=== PATIENT | male | born 1985 | race African-American/Black ===

== ENCOUNTER 2018-01-17 01:19 | Emergency (ER) | payer OTHER ==
[~2018-01-17] VITALS: Ht 175.3 cm; Wt 69.4 kg
--- NOTE | 2018-01-17 04:36 | NUR ---
Patient discharged to home in stable conditon. Written and verbal after care instructions given. Patient verbalizes understanding of instructions. Patient able to ambulate unassisted with steady gait. Patient left with all of his belongings.
[2018-01-17 04:38] VITALS: BP 118/86
== END 2018-01-17 04:35 | disposition home or self-care (01) ==
LOC: ER 01:21
DX: Z00.00 Encounter for general adult medical examination without abnormal findings (principal)
CPT/HCPCS: A4663

== ENCOUNTER 2019-02-04 14:36 | Emergency (ER) | payer OTHER ==
[~2019-02-04] VITALS: Ht 172.7 cm; Wt 67.1 kg
--- NOTE | 2019-02-04 14:41 | NUR ---
PT A/OX4, PRESENTS TO THE ER C/O R TESTICULAR PAIN X 2 DAYS. PT REPORTS NON-PROVOKED PAIN, SHARP IN QUALITY, DOES NOT RADIATE, CONSTANT. VSS. PT DENIES INJURY/TRAUMA TO AREA. PT DENIES C/P, SOB, N/V/D, DIZZINESS, HEADACHE.
--- NOTE | 2019-02-04 14:44 | NUR ---
CALLED RADIOLOGY TO PAGE FOR Anad[facility].
--- NOTE | 2019-02-04 14:56 | NUR ---
US TECH AT BEDSIDE.
--- NOTE | 2019-02-04 15:06 | NUR ---
ALEX LOWERY AT BEDSIDE FOR MSE.
[2019-02-04 15:15] VITALS: BP 112/78
--- NOTE | 2019-02-04 15:15 | NUR ---
Patient discharged to home in stable conditon. Written and verbal after care instructions given. Patient verbalizes understanding of instructions. ALL BELONGINGS W/ PT. PT SELF-AMBULATED W/O DIFFICULTY.
== END 2019-02-04 15:16 | disposition home or self-care (01) ==
LOC: ER 14:36
DX: I86.1 Scrotal varices (principal)
CPT/HCPCS: 76870; A4663

== ENCOUNTER 2019-03-11 15:18 | Emergency (ER) | payer OTHER ==
[~2019-03-11] VITALS: Ht 172.7 cm; Wt 67.1 kg
[2019-03-11 15:57] LABS: BASOPHILS % (AUTO) 0.4 % (0.0-2.0); EOSINOPHILS % (AUTO) 0.7 % (0.0-7.0); HEMOGLOBIN 15.2 g/dL (12.5-16.3); LYMPHOCYTES # (AUTO) 1.3 K/uL (20.0-40.0); LYMPHOCYTES % (AUTO) 28.2 % (20.5-51.5); MEAN CORPUSCULAR HEMOGLOBIN 30.3 uug (23.8-33.4); MEAN CORPUSCULAR HGB CONC 34 g/dL (32.5-36.3); MEAN CORPUSCULAR VOLUME 89.5 fL (73.0-96.2); MONOCYTES # (AUTO) 0.3 K/uL (2.0-10.0); MONOCYTES % (AUTO) 6.4 % (0.0-11.0); NEUTROPHILS % (AUTO) 64.3 % (38.5-71.5); PLATELET COUNT (AUTO) 231 K/uL (152-348); RED BLOOD CELL COUNT(AUTO) 5.03 MIL/uL (4.06-5.63); WHITE BLOOD COUNT (AUTO) 4.7 K/uL (3.6-10.2)
[2019-03-11 16:10] LABS: CREATININE 1.2 mg/dL (0.6-1.3); POTASSIUM 4.2 mmol/L (3.5-5.1)
[2019-03-11] MEDS ORDERED: IBUPROFEN 600 MG TABLET PO ONE (16:15)
[2019-03-11] MEDS ORDERED: IBUPROFEN 600 MG TABLET ONE (16:30)
--- NOTE | 2019-03-11 16:33 | NUR ---
Patient discharged to home in stable conditon. Written and verbal after care instructions given. Patient verbalizes understanding of instructions.
== END 2019-03-11 16:34 | disposition home or self-care (01) ==
LOC: ER 15:19
DX: R07.89 Other chest pain (principal)
CPT/HCPCS: 36415; 70030-TC; 71045; 85025; 93005; A4663

== ENCOUNTER 2019-11-19 00:41 | Emergency (ER) | payer OTHER ==
[~2019-11-19] VITALS: Ht 172.7 cm; Wt 68.9 kg
[2019-11-19 01:05] LABS: *BILIRUBIN,URIN NEGATIVE (NEGATIVE); *BLOOD, URINE NEGATIVE (NEGATIVE); *CLARITY,URINE CLEAR (CLEAR); *COLOR,URINE YELLOW (YELLOW); *KETONES,URINE NEGATIVE (NEGATIVE); *UROBILINOGEN,URINE 0.2 E.U./dl (NORMAL); LEUKOCYTE ESTERASE ,URINE NEGATIVE (NEGATIVE); NITRITE, URINE NEGATIVE (NEGATIVE); PH,URINE 8.5 (5.0-8.0); UGLUCOSE NEGATIVE (NEGATIVE)
--- NOTE | 2019-11-19 01:07 | NUR ---
DR. CRAWFORD AT BEDSIDE FOR MSE.
[2019-11-19 01:34] LABS: BASOPHILS % (AUTO) 0.5 % (0.0-2.0); EOSINOPHILS # (AUTO) 0.1 K/uL (0.0-0.7); EOSINOPHILS % (AUTO) 1.3 % (0.0-7.0); HEMATOCRIT 45.4 % (36.7-47.1); HEMOGLOBIN 15.6 g/dL (12.5-16.3); LYMPHOCYTES # (AUTO) 1.8 K/uL (20.0-40.0); LYMPHOCYTES % (AUTO) 35.1 % (20.5-51.5); MEAN CORPUSCULAR HEMOGLOBIN 30.5 uug (23.8-33.4); MEAN CORPUSCULAR HGB CONC 34 g/dL (32.5-36.3); MEAN CORPUSCULAR VOLUME 88.5 fL (73.0-96.2); MONOCYTES # (AUTO) 0.4 K/uL (2.0-10.0); MONOCYTES % (AUTO) 7.7 % (0.0-11.0); NEUTROPHILS # (AUTO) 2.8 K/uL (1.8-8.9); NEUTROPHILS % (AUTO) 55.4 % (38.5-71.5); PLATELET COUNT (AUTO) 231 K/uL (152-348); RED BLOOD CELL COUNT(AUTO) 5.13 MIL/uL (4.06-5.63)
[2019-11-19 01:50] LABS: BILIRUBIN,DIRECT 0.2 mg/dL (0.0-0.2); BILIRUBIN,TOTAL 1.1 mg/dL (0.2-1.0); CREATININE 1.1 mg/dL (0.6-1.3); POTASSIUM 3.7 mmol/L (3.5-5.1); TOTAL PROTEIN, SERUM 7.7 g/dL (6.4-8.2)
[2019-11-19] MEDS ORDERED: KETOROLAC TROMETHAMINE 60 MG INJ IM ONE ×2 (02:11→02:15)
[2019-11-19 02:35] VITALS: BP 117/85
--- NOTE | 2019-11-19 02:36 | NUR ---
Patient discharged to home in stable conditon. Written and verbal after care instructions given. Patient verbalizes understanding of instructions. PATIENT LEFT WITH STABLE GAIT.
[2019-11-21 16:11] LABS: *TRIC.VAG. NAA Negative (Negative)
[2019-11-22 03:06] LABS: *GC NAA Negative (Negative)
== END 2019-11-19 02:36 | disposition home or self-care (01) ==
LOC: ER 00:44
DX: K76.89 Other specified diseases of liver (principal); R30.0 Dysuria; R10.30 Lower abdominal pain, unspecified
CPT/HCPCS: 36415; 85025; 87086; 87491; A4663; J1885

== ENCOUNTER 2020-12-07 20:34 | Emergency (ER) | payer OTHER ==
[~2020-12-07] VITALS: Ht 175.3 cm; Wt 72.6 kg
[2020-12-07 21:02] LABS: *BILIRUBIN,URIN NEGATIVE (NEGATIVE); *BLOOD, URINE NEGATIVE (NEGATIVE); *CLARITY,URINE CLEAR (CLEAR); *COLOR,URINE YELLOW (YELLOW); *KETONES,URINE NEGATIVE (NEGATIVE); *UROBILINOGEN,URINE 0.2 E.U./dl (NORMAL); LEUKOCYTE ESTERASE ,URINE NEGATIVE (NEGATIVE); NITRITE, URINE NEGATIVE (NEGATIVE); UGLUCOSE NEGATIVE (NEGATIVE)
[2020-12-07 21:27] VITALS: BP 120/88
--- NOTE | 2020-12-07 21:27 | NUR ---
Patient discharged to home in stable condition. Written and verbal after care instructions given. Patient verbalizes understanding of instructions. Stressed follow up or return to ER for worsening s/s.
== END 2020-12-07 21:28 | disposition home or self-care (01) ==
LOC: ER 20:39
DX: R35.0 Frequency of micturition (principal); R73.9 Hyperglycemia, unspecified
CPT/HCPCS: 36415; 84153; A4663

== ENCOUNTER 2022-03-19 01:09 | Emergency (ER) | payer OTHER ==
[~2022-03-19] VITALS: Ht 172.7 cm; Wt 70.3 kg
--- NOTE | 2022-03-19 01:15 | NUR ---
Dr Meeks at bedside, MSE in progress.
[2022-03-19] MEDS ORDERED: KETOROLAC TROMETHAMINE 30 MG INJ IVP ONE (01:45)
[2022-03-19] MEDS ORDERED: diphenhydrAMINE 50 MG/1 ML VIAL IV ONE (01:45)
[2022-03-19] MEDS ORDERED: METOCLOPRAMIDE HCL 10 MG/2 ML VIAL IV ONE (01:45)
[2022-03-19] MEDS ORDERED: METOCLOPRAMIDE HCL 10 MG/2 ML VIAL ONE (01:59)
[2022-03-19] MEDS ORDERED: KETOROLAC TROMETHAMINE 30 MG INJ ONE (01:59)
[2022-03-19] MEDS ORDERED: diphenhydrAMINE 50 MG/1 ML VIAL ONE (01:59)
[2022-03-19] MEDS ORDERED: IV NS 1000 ML 1,000 ML IV ONE (02:00)
[2022-03-19 02:38] LABS: HEMATOCRIT 44.6 % (36.7-47.1); MEAN CORPUSCULAR HEMOGLOBIN 31.1 uug (23.8-33.4); PLATELET COUNT (AUTO) 224 K/uL (152-348)
[2022-03-19 02:44] LABS: NEUTROPHILS % (MANUAL) 0 % (42-75)
[2022-03-19] MEDS ORDERED: CYANOCOBALAMIN 1000 MCG/ML VIAL IM ONE (04:00)
[2022-03-19] MEDS ORDERED: CYANOCOBALAMIN 1000 MCG/ML VIAL ONE (04:03)
[2022-03-19] MEDS ORDERED: PROC-11 PO (04:09)
[2022-03-19] MEDS ORDERED: NAPR-1164 PO (04:09)
[2022-03-19] MEDS ORDERED: SUMA100T16 PO (04:09)
--- NOTE | 2022-03-19 04:23 | NUR ---
Patient discharged to home in stable condition. Written and verbal after care instructions given. Patient verbalizes understanding of instructions. Stressed follow up or return to ER for worsening s/s. pt ambulated with steady gait. Denies pain. AOx4
[2022-03-19 04:24] VITALS: BP 105/59
== END 2022-03-19 04:24 | disposition home or self-care (01) ==
LOC: ER 01:19
DX: M94.0 Chondrocostal junction syndrome [Tietze] (principal); G43.909 Migraine, unspecified, not intractable, without status migrainosus; R00.0 Tachycardia, unspecified
CPT/HCPCS: 36415; 82607; 85007; 85025; 93005; 96361; 96372; 96374; 96375; 99284; J1200; J1885; J2765; J3420; J7040; 70030-TC; A4663

== ENCOUNTER 2024-08-28 17:24 | Emergency (ER) | payer OTHER ==
[~2024-08-28] VITALS: Ht 175.3 cm; Wt 70.3 kg
[~2024-08-28 17:24] MED LIST: NAPR-1164 PO; PROC-11 PO; SUMA100T16 PO
[2024-08-28 18:48] LABS: BASOPHILS % (AUTO) 0.6 % (0.0-2.0); EOSINOPHILS # (AUTO) 0.1 K/uL (0.0-0.7); EOSINOPHILS % (AUTO) 1.3 % (0.0-7.0); HEMATOCRIT 43.6 % (36.7-47.1); LYMPHOCYTES # (AUTO) 1.5 K/uL (0.8-4.8); LYMPHOCYTES % (AUTO) 27.7 % (20.5-51.5); MEAN CORPUSCULAR HEMOGLOBIN 30.8 uug (23.8-33.4); MEAN CORPUSCULAR HGB CONC 34 g/dL (32.5-36.3); MEAN CORPUSCULAR VOLUME 89.9 fL (73.0-96.2); MONOCYTES # (AUTO) 0.5 K/uL (0.1-1.30); NEUTROPHILS # (AUTO) 3.3 K/uL (1.8-8.9); NEUTROPHILS % (AUTO) 61.4 % (38.5-71.5); PLATELET COUNT (AUTO) 248 K/uL (152-348); RED BLOOD CELL COUNT(AUTO) 4.85 MIL/uL (4.06-5.63); RED CELL DISTRIBUTION WIDTH 13.6 % (12.1-16.2); WHITE BLOOD COUNT (AUTO) 5.4 K/uL (3.6-10.2)
[2024-08-28 18:52] LABS: DIFFERENTIAL COMMENT 1
[2024-08-28 18:55] LABS: CALCIUM 9.1 mg/dL (8.5-10.1); CARBON DIOXIDE 31 mmol/L (21-32); CHLORIDE 106 mmol/L (98-107); CREATININE 1.2 mg/dL (0.6-1.3); GLUCOSE 88 mg/dL (74-106); POTASSIUM 3.8 mmol/L (3.5-5.1); SODIUM SERUM 144 mmol/L (136-145); UREA NITROGEN, BLOOD 9 mg/dL (7-18)
[2024-08-28 19:55] VITALS: BP 118/78; O2SAT 98
== END 2024-08-28 19:56 | disposition home or self-care (01) ==
LOC: ER 17:27
DX: M94.0 Chondrocostal junction syndrome [Tietze] (principal); R00.2 Palpitations; F41.9 Anxiety disorder, unspecified; Z79.899 Other long term (current) drug therapy; Z88.7 Allergy status to serum and vaccine
CPT/HCPCS: 36415; 71045; 83735; 84484; 85025; A4606; A4663